=== PATIENT | female | born 1970 | race Hispanic/Latino ===

== ENCOUNTER 2018-11-19 08:42 | Outpatient (CLI) | payer BC ==
--- NOTE | 2018-11-19 10:49 | RAD ---
RIGHT ELBOW 4 VIEWS: HISTORY: Medial elbow pain. FINDINGS: There are no signs of fracture or joint effusion. No evidence of any significant arthritic change. IMPRESSION: Unremarkable right elbow. POS: [facility]
--- NOTE | 2018-11-19 10:49 | RAD ---
TWO VIEWS CHEST: Comparison: None. History: Fatigue. FINDINGS: Two views of the chest show normal sized cardiomediastinal silhouette. There is no evidence of consol idation, mass, or pleural effusion. The bones are unremarkable. IMPRESSION: No evidence of acute cardiopulmonary disease. POS: [facility]
--- NOTE | 2018-11-19 11:10 | RAD ---
LEFT ELBOW FOUR VIEWS: History: Lateral elbow pain. FINDINGS: Epicondyles appear unremarkable. There is some ossification between the proximal radius and ulna. Thi s may be a sequellae of an old injury. There is no joint effusion. Minimal spurring along the coronoi d process and anterior elbow joint. IMPRESSION: Minimal arthritic changes of the elbow. POS: [facility]
== END 2018-11-19 08:43 | disposition home or self-care (01) ==
LOC: BICRAD 08:42
PROVIDERS: ATTEND Family Medicine
DX: M77.12 Lateral epicondylitis, left elbow (principal); M77.01 Medial epicondylitis, right elbow; R53.83 Other fatigue; M19.022 Primary osteoarthritis, left elbow
CPT/HCPCS: 71046

== ENCOUNTER 2018-12-30 13:35 | Outpatient (CLI) | payer BC ==
--- NOTE | 2018-12-30 14:06 | MMO ---
Bilateral MAMMO Bilat Screen [facility]. CLINICAL HISTORY: Patient is 48 years old and is seen for screening. The patient has no family history of breast cancer. The patient has no personal history of cancer. VIEWS: The views performed were: bilateral craniocaudal with tomosynthesis and bilateral mediolateral oblique with tomosynthesis. MAMMOGRAM FINDINGS: The breasts are heterogeneously dense, which could obscure a lesion on mammography. There are no suspicious masses, suspicious calcifications, or new areas of architectural distortion. IMPRESSION: THERE IS NO MAMMOGRAPHIC EVIDENCE OF MALIGNANCY. A ROUTINE FOLLOW-UP MAMMOGRAM IN 1 YEAR IS RECOMMENDED. THE RESULTS OF THIS EXAM WERE SENT TO THE PATIENT. ACR BI-RADS Category 1 - Negative MAMMOGRAPHY NOTE: 1. A negative mammogram report should not delay a biopsy if a dominant of clinically suspicious mass is present. 2. Approximately 10% to 15% of breast cancers are not detected by mammography. 3. Adenosis and dense breasts may obscure an underlying neoplasm.
== END 2018-12-30 13:36 | disposition home or self-care (01) ==
LOC: BICMAMMO 13:35
PROVIDERS: ATTEND Family Medicine
DX: Z12.31 Encounter for screening mammogram for malignant neoplasm of breast (principal)
CPT/HCPCS: 77063; 77067

== ENCOUNTER 2019-10-28 11:25 | Outpatient (CLI) | payer BC ==
--- NOTE | 2019-10-28 14:10 | RAD ---
LEFT ELBOW 4 VIEWS: Date: 10/28/2019 HISTORY: Elbow pain without injury. COMPARISON: 11/19/2018 study. FINDINGS: There are no signs of fracture, dislocation, or joint effusion. Some minimal arthritic changes are ag ain demonstrated. IMPRESSION: Stable exam. POS: [facility]
--- NOTE | 2019-10-28 14:11 | RAD ---
LEFT HUMERUS 2 VIEWS: Date: 10/28/2019 HISTORY: Chronic elbow pain and swelling. FINDINGS: There are no signs of fracture or dislocation. IMPRESSION: Negative left humerus. POS: [facility]
--- NOTE | 2019-10-28 14:16 | RAD ---
PA AND LATERAL CHEST: Date: 10/28/2019 HISTORY: Abnormal findings of lung yang. COMPARISON: 11/19/2018 study. FINDINGS: Heart size is slightly enlarged. Mediastinal structures appear unremarkable. Lungs are clear of any i nfiltrative process. IMPRESSION: Minimal cardiomegaly. Stable chest. POS: [facility]
== END 2019-10-28 11:26 | disposition home or self-care (01) ==
LOC: BICRAD 11:25
PROVIDERS: ATTEND Family Medicine
DX: M25.522 Pain in left elbow (principal); R91.8 Other nonspecific abnormal finding of lung field; R93.6 Abnormal findings on diagnostic imaging of limbs; I51.7 Cardiomegaly
CPT/HCPCS: 71046

== ENCOUNTER 2020-02-23 15:04 | Outpatient (CLI) | payer BC ==
--- NOTE | 2020-02-23 15:54 | ULT ---
Exam: Pelvic ultrasound HISTORY: Irregular menstrual cycle. COMPARISON: None TECHNIQUE: Multiple grayscale and color Doppler images were obtained in a transabdominal and transvag inal pelvic ultrasound. Spectral analysis of the Doppler waveforms of the ovaries were performed. FINDINGS: CERVIX: Nabothian cyst is present. UTERUS: Normal in size without focal abnormality. ENDOMETRIAL STRIPE: 10 mm which is within normal limits for a normal menstruating female patient. No fluid or fluid collection is seen in the endometrial canal. No free fluid is present. RIGHT OVARY: Normal flow, without focal mass. LEFT OVARY:Small anechoic structure measuring 1.5 cm present in the left ovary which may represent do minant follicle/small cyst. Flow is demonstrated in the left ovary. IMPRESSION: 1. Normal-appearing uterus with endometrial stripe measuring 10 mm. No fluid or fluid collection is s een in the endometrial canal. 2. Dominant left ovarian follicle/small cyst. Ovaries otherwise have a normal appearance with flow se en in each ovary.
--- NOTE | 2020-02-23 15:56 | MMO ---
Bilateral MAMMO Bilat Screen [facility]. CLINICAL HISTORY: Patient is 49 years old and is seen for screening. The patient has no family history of breast cancer. The patient has no personal history of cancer. VIEWS: The views performed were: bilateral craniocaudal with tomosynthesis and bilateral mediolateral oblique with tomosynthesis. FILMS COMPARED: The present examination has been compared to a prior imaging study performed at [facility] on 12/30/2018. This study has been interpreted with the assistance of computer-aided detection. MAMMOGRAM FINDINGS: The breasts are heterogeneously dense, which could obscure a lesion on mammography. There are no suspicious masses, suspicious calcifications, or new areas of architectural distortion. IMPRESSION: THERE IS NO MAMMOGRAPHIC EVIDENCE OF MALIGNANCY. A ROUTINE FOLLOW-UP MAMMOGRAM IN 1 YEAR IS RECOMMENDED. THE RESULTS OF THIS EXAM WERE SENT TO THE PATIENT. ACR BI-RADS Category 1 - Negative MAMMOGRAPHY NOTE: 1. A negative mammogram report should not delay a biopsy if a dominant of clinically suspicious mass is present. 2. Approximately 10% to 15% of breast cancers are not detected by mammography. 3. Adenosis and dense breasts may obscure an underlying neoplasm. Reported by: DEANNA DOMINGO MD Electonically Signed: [id number]
--- NOTE | 2020-02-23 16:14 | RAD ---
AP VIEW OF THE PELVIS: 02/23/20 INDICATION: Pelvic pain. COMPARISON: None. FINDINGS: There is mild degenerative arthrosis of the left hip. There are small phleboliths involving the lower hemipelvis. There is mild degenerative change of both SI joints. Bowel gas pattern is unobstructed. IMPRESSION: Mild left hip osteoarthrosis and mild degenerative change of both SI joints. POS: [facility]
--- NOTE | 2020-02-23 16:15 | RAD ---
LEFT HIP TWO VIEWS: 02/23/20 INDICATION: Left hip pain. COMPARISON: None. IMPRESSION: There is mild left hip osteoarthrosis. No acute fracture or subluxation is evident. There is mild deg enerative change of the left SI joint. POS: [facility]
--- NOTE | 2020-02-23 16:16 | RAD ---
PA AND LATERAL OF THE CHEST: 02/23/20 INDICATION: History of renal cancer and chest pain. COMPARISON: Prior exam dated 10/28/19. IMPRESSION: There is stable mild cardiomegaly. Postsurgical changes of the upper abdomen is similar appearing. COMMENTS: No suspicious pulmonary nodule, air space opacity or pleural effusion is evident. No acute osseous ab normality is noted. POS: [facility]
== END 2020-02-23 15:05 | disposition home or self-care (01) ==
LOC: BICULT 15:04
PROVIDERS: ATTEND Family Medicine
DX: Z12.31 Encounter for screening mammogram for malignant neoplasm of breast (principal); N92.6 Irregular menstruation, unspecified; M79.606 Pain in leg, unspecified; M70.62 Trochanteric bursitis, left hip; M16.12 Unilateral primary osteoarthritis, left hip; M47.818 Spondylosis without myelopathy or radiculopathy, sacral and sacrococcygeal region; Z85.528 Personal history of other malignant neoplasm of kidney
CPT/HCPCS: 71046; 72170; 76856; 77063; 77067

== ENCOUNTER 2021-03-19 09:48 | Outpatient (CLI) | payer BC | END 2021-03-19 09:49 | disposition home or self-care (01) | LOC: NM 09:48 | PROVIDERS: ATTEND Family Medicine | DX: M70.62 Trochanteric bursitis, left hip (principal); M25.552 Pain in left hip; M89.9 Disorder of bone, unspecified; Z85.528 Personal history of other malignant neoplasm of kidney | CPT/HCPCS: 78306; A9503 ==

== ENCOUNTER 2021-12-25 14:34 | Outpatient (CLI) | payer BC | END 2021-12-25 14:35 | disposition home or self-care (01) | LOC: BICMAMMO 14:34 | PROVIDERS: ATTEND Family Medicine | DX: Z12.31 Encounter for screening mammogram for malignant neoplasm of breast (principal) | CPT/HCPCS: 77063; 77067 ==